=== PATIENT | male | born 1945 | race Caucasian/White ===

== ENCOUNTER 2020-10-30 14:34 | Emergency (ER) | payer MEDICARE ==
[~2020-10-30] VITALS: Ht 175.2 cm; Wt 82.1 kg
[2020-10-30 14:55] VITALS: BP 143/86
[2020-10-30] MEDS ORDERED: CEPHALEXIN500 M1 PO (16:22)
== END 2020-10-30 16:36 | disposition home or self-care (01) ==
LOC: ED 14:34
DX: S01.81XA Laceration without foreign body of other part of head, initial encounter (principal); W45.8XXA Other foreign body or object entering through skin, initial encounter; Y93.89 Activity, other specified; Y92.89 Other specified places as the place of occurrence of the external cause; Y99.8 Other external cause status

== ENCOUNTER 2020-11-04 12:08 | Emergency (ER) | payer MEDICARE ==
[~2020-11-04] VITALS: Ht 175.2 cm; Wt 82.1 kg
[~2020-11-04 12:08] MED LIST: CEPHALEXIN500 M1 PO
[2020-11-04 12:22] VITALS: BP 132/63
== END 2020-11-04 13:38 | disposition home or self-care (01) ==
LOC: ED 12:08
DX: S01.81XD Laceration without foreign body of other part of head, subsequent encounter (principal); Z48.02 Encounter for removal of sutures; X58.XXXD Exposure to other specified factors, subsequent encounter

== ENCOUNTER 2022-03-31 10:32 | Inpatient (IN) | payer MEDICARE ==
[2022-03-31] VITALS (8 sets, daily range): BP systolic 118–157; BP diastolic 64–82
[~2022-03-31] VITALS: Ht 175.2 cm; Wt 81.6 kg
[2022-03-31 11:21] LABS: BASO % 0.5 % (0.0-1.0); HEMATOCRIT 48.1 % (42.0-52.0); LYMPH # 0.4 10*3/uL (1.3-4.4); LYMPH % 7.4 % (27.0-41.0); MEAN CELL VOLUME 82.5 fl (80.0-94.0); MEAN CORPUSCULAR HGB CONC 33.9 g/dl (33.0-37.0); MEAN PLATELET VOLUME 10.2 fl (9.6-12.3); MONO # 0.6 10*3/uL (0.1-1.0); MONO % 9.5 % (3.0-9.0); NEUT # 4.8 10*3/uL (2.3-7.9); NEUT % 82.3 % (47.0-73.0); PLATELET COUNT AUTOMATED 86 10*3/uL (130-400); RED BLOOD COUNT 5.83 10*6/uL (4.50-5.90); WHITE BLOOD COUNT 5.8 10*3/uL (4.8-10.8)
[2022-03-31 11:29] LABS: ACT PARTIAL THROMBO TIME 33.3 SECONDS (20.0-32.1)
[2022-03-31 11:34] LABS: CREATININE 2.57 mg/dL (0.70-1.30); POTASSIUM 4.8 mmol/L (3.5-5.1); TOTAL PROTEIN 7.5 gm/dL (6.4-8.2)
[2022-03-31] MEDS ORDERED: LISINOPRIL5 MG PO (11:40)
[2022-03-31] MEDS ORDERED: ELIQUIS5 M1 PO (11:40)
[2022-03-31] MEDS ORDERED: LATANOPROST2.5 ML OP (11:40)
[2022-03-31] MEDS ORDERED: METOPROLOL SUCC25 M2 PO (11:40)
[2022-03-31 14:36] LABS: BILIRUBIN Negative (Negative); BLOOD Trace-Lysed (Negative); CLARITY Cloudy (Clear); COLOR Yellow (Yellow); GLUCOSE Negative (Negative); KETONE Trace (Negative); LEUKO ESTERASE Negative (Negative); NITRITE Negative (Negative); UROBILINOGEN 0.2 E.U./dl (0.0-1.0)
[2022-03-31 14:51] LABS: RBC 0-2 rbc/hpf (0-2)
[2022-04-01 06:16] LABS: CREATININE 2.34 mg/dL (0.70-1.30); TOTAL PROTEIN 6.2 gm/dL (6.4-8.2)
[2022-04-01 06:22] LABS: FREE T4 1.51 ng/dl (0.76-1.46); THYROID STIM HORMONE (HS) 0.68 uIU/ml (0.358-4.75)
[2022-04-01 06:33] LABS: HEMATOCRIT 44.5 % (42.0-52.0); MEAN CELL VOLUME 83.6 fl (80.0-94.0); MEAN CORPUSCULAR HGB 28.4 pg (27.0-31.0); MEAN CORPUSCULAR HGB CONC 33.9 g/dl (33.0-37.0); MEAN PLATELET VOLUME 11.2 fl (9.6-12.3); PLATELET COUNT AUTOMATED 83 10*3/uL (130-400); RED BLOOD COUNT 5.32 10*6/uL (4.50-5.90); RED CELL DISTRI WIDTH 14.2 % (0-14.5); WHITE BLOOD COUNT 3.6 10*3/uL (4.8-10.8)
[2022-04-01 07:06] LABS: MANUAL DIFF REFLEX YES
[2022-04-01 07:19] LABS: VITAMIN D, 25-HYDROXY 70.5 ng/mL (30-100)
[2022-04-01 08:00] VITALS: BP 156/83
[2022-04-01 08:14] LABS: ATYPICAL LYMPHS 7 % (0-0); TOTAL CELLS COUNTED 100 #CELLS
[2022-04-01 08:17] LABS: BURR CELLS FEW; PLATELET SUFFICIENCY LOW (NORMAL)
[2022-04-01 12:00] VITALS: BP 133/81
[2022-04-01 16:00] VITALS: BP 154/74
[2022-04-01 20:00] VITALS: BP 142/67
[2022-04-02] VITALS: BP 155/73
[2022-04-02 06:28] LABS: HEMATOCRIT 39.7 % (42.0-52.0); MEAN CELL VOLUME 84.6 fl (80.0-94.0); MEAN CORPUSCULAR HGB 28.4 pg (27.0-31.0); MEAN CORPUSCULAR HGB CONC 33.5 g/dl (33.0-37.0); MEAN PLATELET VOLUME 11.5 fl (9.6-12.3); PLATELET COUNT AUTOMATED 67 10*3/uL (130-400); RED BLOOD COUNT 4.69 10*6/uL (4.50-5.90); RED CELL DISTRI WIDTH 14.4 % (0-14.5); WHITE BLOOD COUNT 5.1 10*3/uL (4.8-10.8)
[2022-04-02 06:33] LABS: MANUAL DIFF REFLEX YES
[2022-04-02 06:51] LABS: CREATININE 2.1 mg/dL (0.70-1.30); POTASSIUM 4.3 mmol/L (3.5-5.1)
[2022-04-02 07:49] LABS: ATYPICAL LYMPHS 4 % (0-0); PLATELET SUFFICIENCY LOW (NORMAL); TOTAL CELLS COUNTED 100 #CELLS
[2022-04-02 07:51] LABS: BURR CELLS MODERATE
[2022-04-02 08:00] VITALS: BP 142/71
[2022-04-02] MEDS ORDERED: METOPROLOL SUCC25 M2 PO (09:53)
== END 2022-04-02 10:49 | disposition home or self-care (01) | DRG 640 ==
LOC: ED 10:32 → EDHOLD 16:09 → 4E 16:09
PROVIDERS: Emergency Medicine; Internal Medicine; Student in an Organized Health Care Education/Training Program; ADMIT Internal Medicine; ATTEND Internal Medicine
DX: E87.1 Hypo-osmolality and hyponatremia (principal); E43 Unspecified severe protein-calorie malnutrition; N17.0 Acute kidney failure with tubular necrosis; D68.59 Other primary thrombophilia; E86.0 Dehydration; Z20.822 Contact with and (suspected) exposure to COVID-19; I10 Essential (primary) hypertension; I25.10 Atherosclerotic heart disease of native coronary artery without angina pectoris; D69.6 Thrombocytopenia, unspecified; R73.9 Hyperglycemia, unspecified; I70.90 Unspecified atherosclerosis; R31.9 Hematuria, unspecified; E05.90 Thyrotoxicosis, unspecified without thyrotoxic crisis or storm; E83.41 Hypermagnesemia; K52.9 Noninfective gastroenteritis and colitis, unspecified; Z86.718 Personal history of other venous thrombosis and embolism; Z86.711 Personal history of pulmonary embolism; Z87.891 Personal history of nicotine dependence; Z82.49 Family history of ischemic heart disease and other diseases of the circulatory system; Z68.26 Body mass index [BMI] 26.0-26.9, adult